=== PATIENT | female | born 2000 | race African-American/Black ===

== ENCOUNTER 2024-10-12 23:34 | Inpatient (IN) | payer OTHER ==
[2024-10-12] MEDS: ELECTROLYTE-148 SOLN 1,000 ML IV SCH (23:54)
[2024-10-13] MEDS: AMPICILLIN - 2 GM in SODIUM CHLORIDE 100 ML IVPB ONE (00:02)
[2024-10-13] MEDS ORDERED: OXYTOCIN 20 UNITS in 0.9% NS 20 UNIT/1,000 ML INFUS.BAG IV ONE (00:06)
[2024-10-13] MEDS: OXYTOCIN 20 UNITS in 0.9% NS 20 UNIT/1,000 ML INFUS.BAG IV SCH (00:11)
[2024-10-13] MEDS: CARBOPROST TROMETHAMINE 250 MCG/ML AMPUL IM ONE (00:19)
[2024-10-13] MEDS ORDERED: BENZOCAINE 20% 57 GM BOTTLE TP PRN (00:24)
[2024-10-13] MEDS ORDERED: BENZOCAINE 28 GM HEMORRHOIDAL OINTMENT TP PRN (00:24)
[2024-10-13] MEDS ORDERED: BISACODYL 10 MG SUPP.RECT RC PRN (00:24)
[2024-10-13] MEDS ORDERED: METHYLERGONOVINE MALEATE 0.2 MG/1 ML AMP IM PRN (00:24)
[2024-10-13] MEDS ORDERED: oxyCODONE HCL 5 MG TABLET PO PRN (00:24)
[2024-10-13] MEDS ORDERED: WITCH HAZEL 50% (TUCKS) 40 PAD/JAR PAD TP PRN (00:24)
[2024-10-13 00:39] LABS: CORD BASE EXCESS -1.1 mmol/L (0-2); CORD HCO3 24.3 mmHg (20-29); CORD pH 7.37 (7.14-7.44)
[2024-10-13 00:47] LABS: CORD HCO3 20.8 mmHg (20-29); CORD PCO2 30.6 mmHg (30-78); CORD pH 7.451 (7.14-7.44)
[2024-10-13] MEDS ORDERED: ACETAMINOPHEN 325 MG TABLET (FP) ONE (00:48)
[2024-10-13] MEDS: ACETAMINOPHEN 325 MG TABLET (FP) PO PRN (00:52)
[2024-10-13 01:54] LABS: BASO % 0.2 % (0-2.0); EOS % 0.2 % (0-4.5); HEMOGLOBIN 13.6 GM/dL (10.7-15.3); LYMPH % 14.9 % (8-40); MCH 29.8 pg (25.7-33.7); MCHC 33.9 g/dl (32.0-36.0); MEAN CELL VOLUME 87.8 fl (80-96); MEAN PLT VOLUME 8.3 fl (7.5-11.1); MONO % 5.2 % (3.8-10.2); NEUT % 79.5 % (42.8-82.8); PLATELET COUNT 216 10^3/uL (134-434); RBC 4.55 M/mm3 (3.60-5.2); RDW 13.9 % (11.6-15.6); WHITE BLOOD COUNT 8.6 K/mm3 (4.0-10.0)
[2024-10-13 01:58] LABS: EPI CELLS 27 /uL (0-25.1); HYALINE CASTS 2 /uL (0-3.1); URINE APPEARANCE CLEAR; URINE BACTERIA 158 /uL (0-1359); URINE BILIRUBIN NEGATIVE (NEGATIVE); URINE COLOR YELLOW; URINE GLUCOSE (UA) NEGATIVE (NEGATIVE); URINE KETONE 2+ (NEGATIVE); URINE LEUK ESTERASE NEGATIVE (NEGATIVE); URINE NITRITE NEGATIVE (NEGATIVE); URINE PROTEIN NEGATIVE (NEGATIVE); URINE RBC 405 /uL (0-23.9); URINE UROBILINOGEN 0.2 mg/dL (0.2-1.0); URINE WBC 6 /uL (0-25.8)
[2024-10-13 02:01] LABS: INR 0.96 (0.83-1.09); PROTHROMBIN TIME (PATIENT) 10.6 SEC (9.7-13.0)
[2024-10-13 02:02] LABS: COCAINE, UR NEGATIVE (NEGATIVE); METHADONE, UR NEGATIVE (NEGATIVE); URINE AMPHETAMINES NEGATIVE (NEGATIVE); URINE BARBITURATES NEGATIVE (NEGATIVE); URINE BENZODIAZEPINES NEGATIVE (NEGATIVE)
[2024-10-13 02:03] LABS: OPIATES, URI NEGATIVE (NEGATIVE); PHENCYCLIDINE,URINE NEGATIVE (NEGATIVE)
[2024-10-13 02:04] LABS: ACTIVATED PTT 24.8 SECONDS (25.2-36.5)
[2024-10-13] MEDS ORDERED: NIFEdipine 10 MG CAPSULE (FP) ONE (02:11)
[2024-10-13 02:13] LABS: CHLORIDE 107 mmol/L (98-107); POTASSIUM 3.5 mmol/L (3.5-5.1); SODIUM 137 mmol/L (136-145)
[2024-10-13] MEDS: NIFEdipine 10 MG CAPSULE (FP) PO ONE (02:13)
[2024-10-13 02:16] LABS: ALBUMIN 3.2 g/dl (3.4-5.0); ANION GAP 8 mmol/L (4-13); BLOOD UREA NITROGEN 3.7 mg/dL (7-18); CO2 21 mmol/L (21-32)
[2024-10-13 02:19] LABS: CREATININE 0.4 mg/dL (0.55-1.3); SGOT/AST 11 U/L (15-37); SGPT/ALT 11 U/L (13-61)
[2024-10-13 02:20] LABS: BILIRUBIN,TOTAL 0.4 mg/dL (0.2-1)
[2024-10-13 02:22] LABS: ALK PHOS 110 U/L (45-117)
[2024-10-13 02:26] LABS: GLUCOSE,RANDOM 105 mg/dL (74-106)
[2024-10-13 02:46] LABS: SYPHILIS W/ RPR CONF NON-REACTIVE (NONREACTIVE)
[2024-10-13 02:48] VITALS: BMI 29.2
[2024-10-13 03:15] LABS: HIV INTERPRETATION NEGATIVE (NEGATIVE)
[2024-10-13] MEDS: AMPICILLIN - 1 GM in SODIUM CHLORIDE 100 ML IVPB SCH (06:04)
[2024-10-13 06:33] VITALS: RESP 18
[2024-10-13] MEDS ORDERED: NIFEdipine E.R. 30 MG TABLET PO SCH ×2 (10:00→10:45)
[2024-10-13] MEDS: NIFEdipine E.R. 30 MG TABLET PO SCH (11:07)
[2024-10-13] MEDS: IBUPROFEN 600 MG TABLET (FP) PO PRN (15:55)
[2024-10-14 07:18] LABS: BASO % 0.7 % (0-2.0); EOS % 0.8 % (0-4.5); HEMATOCRIT 38.7 % (32.4-45.2); LYMPH % 28.7 % (8-40); MCH 29.7 pg (25.7-33.7); MCHC 33.6 g/dl (32.0-36.0); MEAN CELL VOLUME 88.4 fl (80-96); MONO % 5.6 % (3.8-10.2); NEUT % 64.2 % (42.8-82.8); PLATELET COUNT 224 10^3/uL (134-434); RBC 4.38 M/mm3 (3.60-5.2); RDW 13.7 % (11.6-15.6); WHITE BLOOD COUNT 8.1 K/mm3 (4.0-10.0)
[2024-10-14] MEDS ORDERED: NIFEdipine E.R. 30 MG TABLET PO SCH (10:00)
[2024-10-14 14:34] VITALS: BP 138/82; PULSE 71; TEMP 98.1
[2024-10-14] MEDS ORDERED: SENNOSIDES/DOCUSATE COMBO (SENNA PLUS) TABLET (UD) PO PRN (22:00)
== END 2024-10-14 17:35 | disposition home or self-care (01) | DRG 560 ==
LOC: JLDR 23:34 → J3W 10-13 05:54
PROVIDERS: ADMIT Obstetrics & Gynecology; ATTEND Obstetrics & Gynecology
PROC: 10E0XZZ Delivery of Products of Conception, External Approach (ICD-10-PCS; principal; 2024-10-13)
DX: O60.14X0 Preterm labor third trimester with preterm delivery third trimester, not applicable or unspecified (principal); O09.33 Supervision of pregnancy with insufficient antenatal care, third trimester; Z3A.36 36 weeks gestation of pregnancy; Z37.0 Single live birth
CPT/HCPCS: 36415; 36600; 59409; 80053; 80307; 81003; 82803; 85025; 85610; 85730; 86780; 86803; 86850; 86900; 86901; 87340; 87389